=== PATIENT | female | born 1930 | race Caucasian/White ===

== ENCOUNTER 2017-06-09 00:29 | Inpatient (IN) | payer MEDICARE, MEDICAID ==
[2017-06-09] VITALS (10 sets, daily range): BP systolic 130–161; BP diastolic 61–88
[~2017-06-09] VITALS: Ht 157.5 cm; Wt 47.6 kg
[2017-06-09] MEDS ORDERED: Sodium Chloride 500ML 500 ML IV ONE (00:37)
[2017-06-09] MEDS ORDERED: TENORMIN50 MG ORAL (00:42)
[2017-06-09] MEDS ORDERED: MIRTAZAPINE15 MG ORAL (00:42)
[2017-06-09] MEDS ORDERED: DIOVAN160 MG ORAL (00:42)
[2017-06-09] MEDS ORDERED: METFORMIN HCL500 M1 ORAL (00:42)
[2017-06-09 01:13] LABS: BASOPHILS % (AUTO) 1.2 % (0.0-2.0); HEMATOCRIT 39.1 % (37.0-47.0); HEMOGLOBIN 13.2 G/DL (12.0-16.0); LYMPHOCYTES % (AUTO) 43.4 % (20.0-45.0); MEAN CORPUSCULAR VOLUME 92 FL (80-99); MONOCYTES % (AUTO) 9.9 % (1.0-10.0); NEUTROPHILS % (AUTO) 42.5 % (45.0-75.0); PLATELET COUNT 334 K/UL (150-450); RED BLOOD COUNT 4.26 M/UL (4.20-5.40); RED CELL DISTRIBUTION WIDTH 12.3 % (11.6-14.8); WHITE BLOOD COUNT 5.9 K/UL (4.8-10.8)
[2017-06-09 01:13] LABS: APPEARANCE,URINE CLEAR; BILIRUBIN, URINE NEGATIVE (NEGATIVE); COLOR,URINE PALE YELLOW; GLUCOSE, URINE (UA) NEGATIVE (NEGATIVE); KETONES,URINE NEGATIVE (NEGATIVE); LEUKOCYTE ESTERASE ,URINE 1+ (NEGATIVE); NITRITE,URINE NEGATIVE (NEGATIVE); PH,URINE 8 (4.5-8.0); PROTEIN,URINE NEGATIVE (NEGATIVE); UROBILINOGEN,URINE NORMAL MG/DL (0.0-1.0)
[2017-06-09 01:28] LABS: ANION GAP 9 mmol/L (5-15); BLOOD UREA NITROGEN 16 mg/dL (7-18); CALCIUM 10.4 MG/DL (8.5-10.1); CARBON DIOXIDE 27 MMOL/L (21-32); CHLORIDE 103 MMOL/L (98-107); POTASSIUM 3.8 MMOL/L (3.5-5.1); SODIUM 139 MMOL/L (136-145)
[2017-06-09 01:41] LABS: ALANINE AMINOTRANSFERASE 17 U/L (12-78); ALBUMIN 3.7 G/DL (3.4-5.0); ALBUMIN/GLOBULIN RATIO 0.8 (1.0-2.7); ALKALINE PHOSPHATASE 136 U/L (46-116); ASPARTATE AMINO TRANSFERASE 16 U/L (15-37); BILIRUBIN,TOTAL 0.2 MG/DL (0.2-1.0); CKMB < 0.5 NG/ML (0.0-3.6); CREATINE KINASE 50 U/L (26-308)
[2017-06-09] MEDS ORDERED: Metoprolol Tartrate 50mg tab ORAL ONE (01:45)
--- NOTE | 2017-06-09 02:37 | Emergency Room Report ---
History of Present Illness General Chief Complaint: Hypertension Source: EMS Present Illness HPI 87-year-old female presents ED for evaluation. Brought in by EMS. Daughter at bedside states that patient states she is not feeling well. States her heart started racing tonight. EMS states that rhythm strip showed A. fib. Resolved upon arrival to the ED. Denies any chest pain. Denies any fevers or chills. Denies shortness of breath. Daughter states that this happened recently but patient did not seek medical attention. No prior history of A. fib. No other aggravating factors. Denies any other associated symptoms Allergies: Coded Allergies: SULFA (SULFONAMIDE ANTIBIOTICS) (Verified Allergy, Unknown, 06/09/17) Patient History Past Medical History: DM, psych hx Past Surgical History: none Pertinent Family History: none Social History: Denies: smoking, alcohol use, drug use Now: No Immunizations: UTD Reviewed Nursing Documentation: PMH: Agreed, PSxH: Agreed Nursing Documentation-PMH Hx Hypertension: Yes Hx Diabetes: Yes History Of Psychiatric Problem: Yes - anxiety Review of Systems All Other Systems: negative except mentioned in HPI Physical Exam Vital Signs Date Time Temp Pulse Resp B/P (MAP) Pulse Ox O2 Delivery O2 Flow Rate FiO2 06/09/17 00:16 98.3 145 18 178/85 99 Room Air 98.2 Sp02 EP Interpretation: reviewed, normal General Appearance: no apparent distress, alert, GCS 15, non-toxic Head: normocephalic, atraumatic Eyes: bilateral eye normal inspection, bilateral eye PERRL ENT: hearing grossly normal, normal pharynx, no angioedema, normal voice Neck: full range of motion, supple/symm/no masses Respiratory: chest non-tender, lungs clear, normal breath sounds, speaking full sentences Cardiovascular #1: regular rate, rhythm, no edema Cardiovascular #2: 2+ carotid (R), 2+ carotid (L), 2+ radial (R), 2+ radial (L) , 2+ dorsalis pedis (R), 2+ dorsalis pedis (L) Gastrointestinal: normal bowel sounds, non tender, soft, non-distended, no guarding, no rebound Rectal: deferred Genitourinary: normal inspection, no CVA tenderness Musculoskeletal: back normal, gait/station normal, normal range of motion, non- tender Neurologic: alert, oriented x3, responsive, motor strength/tone normal, sensory intact, speech normal Psychiatric: judgement/insight normal, memory normal, mood/affect normal, no suicidal/homicidal ideation Reflexes: 3+ bicep (R), 3+ bicep (L), 3+ tricep (R), 3+ tricep (L), 3+ knee (R) , 3+ knee (L) Skin: normal color, no rash, warm/dry, well hydrated Lymphatic: no adenopathy Medical Decision Making Diagnostic Impression: Primary Impression: Atrial fibrillation Qualified Codes: I48.0 - Paroxysmal atrial fibrillation ER Course Hospital Course 87 yo F presents to ED c/o palpitations, weakness Differential diagnoses include: PA/unstable angina, contusion, muscle strain, PTX, rib fracture, pneumonia, Clinical course Patient placed on stretcher. on case monitor which shows episodes of A. fib with RVR. After initial history and physical I ordered labs, EKG, chest x-ray labs reviewed- no leukocytosis, hemoglobin/hematocrit ok, electrolytes okay, troponins negative EKG - afib, no acute ischemic changes interpreted by me Chest x-ray- no acute process give lopressor in ED Case discussed with Dr. Awan and he agreed to accept the patient to his service for further care and support I. I feel this is a highly complex case requiring extensive working including EKG/Rhythm strip, Xray/CT/US, Blood/urine lab work, repeat exams while in ED, and administration of strong opiates/narcotics for pain control, admission to hospital or close patient follow up. Diagnosis - atrial fibrillation admitted to telemetry in serious condition Labs Test 06/09/17 00:40 06/09/17 00:45 Urine Color Pale yellow Urine Appearance Clear Urine pH 8 (4.5-8.0) Urine Specific [place] 1.010 (1.005-1.035) Urine Protein Negative (NEGATIVE) Urine Glucose (UA) Negative (NEGATIVE) Urine Ketones Negative (NEGATIVE) Urine Occult Blood Negative (NEGATIVE) Urine Nitrite Negative (NEGATIVE) Urine Bilirubin Negative (NEGATIVE) Urine Urobilinogen Normal MG/DL (0.0-1.0) Urine Leukocyte Esterase 1+ (NEGATIVE) Urine RBC 0-2 /HPF (0 - 2) Urine WBC 0-2 /HPF (0 - 2) Urine Squamous Epithelial Cells Occasional /LPF Urine Bacteria Occasional /HPF (NONE) White Blood Count 5.9 K/UL (4.8-10.8) Red Blood Count 4.26 M/UL (4.20-5.40) Hemoglobin 13.2 G/DL (12.0-16.0) Hematocrit 39.1 % (37.0-47.0) Mean Corpuscular Volume 92 FL (80-99) Mean Corpuscular Hemoglobin 31.0 PG (27.0-31.0) Mean Corpuscular Hemoglobin Concent 33.8 G/DL (32.0-36.0) Red Cell Distribution Width 12.3 % (11.6-14.8) Platelet Count 334 K/UL (150-450) Mean Platelet Volume 7.5 FL (6.5-10.1) Neutrophils (%) (Auto) 42.5 % (45.0-75.0) Lymphocytes (%) (Auto) 43.4 % (20.0-45.0) Monocytes (%) (Auto) 9.9 % (1.0-10.0) Eosinophils (%) (Auto) 3.0 % (0.0-3.0) Basophils (%) (Auto) 1.2 % (0.0-2.0) Sodium Level 139 MMOL/L (136-145) Potassium Level 3.8 MMOL/L (3.5-5.1) Chloride Level 103 MMOL/L (98-107) Carbon Dioxide Level 27 MMOL/L (21-32) Anion Gap 9 mmol/L (5-15) Blood Urea Nitrogen 16 mg/dL (7-18) Creatinine 1.0 MG/DL (0.55-1.30) Estimat Glomerular Filtration Rate mL/min (>60) Glucose Level 128 MG/DL (74-106) Calcium Level 10.4 MG/DL (8.5-10.1) Total Bilirubin 0.2 MG/DL (0.2-1.0) Aspartate Amino Transf (AST/SGOT) 16 U/L (15-37) Alanine Aminotransferase (ALT/SGPT) 17 U/L (12-78) Alkaline Phosphatase 136 U/L (46-116) Total Creatine Kinase 50 U/L (26-308) Creatine Kinase MB < 0.5 NG/ML (0.0-3.6) Creatine Kinase MB Relative Index 1.0 Troponin I 0.000 ng/mL (0.000-0.056) Pro-B-Type Natriuretic Peptide 422 pg/mL (0-125) Total Protein 8.3 G/DL (6.4-8.2) Albumin 3.7 G/DL (3.4-5.0) Globulin 4.6 g/dL Albumin/Globulin Ratio 0.8 (1.0-2.7) EKG Diagnostic Results Rate: normal Rhythm: other - atral fibrillation ST Segments: no acute changes ASA given to the pt in ED: No Rhythm Strip Diag. Results EP Interpretation: yes Rhythm: no PVC's, no ectopy Chest X-Ray Diagnostic Results Chest X-Ray Diagnostic Results : Chest X-Ray Ordered: Yes # of Views/Limited/Complete: 1 View Indication: Chest Pain EP Interpretation: Yes Interpretation: no consolidation, no effusion, no pneumothorax, no acute cardiopulmonary disease Impression: No acute disease Electronically Signed by: Electronically signed by Jong Sheehan MD Last Vital Signs Date Time Temp Pulse Resp B/P (MAP) Pulse Ox O2 Delivery O2 Flow Rate FiO2 06/09/17 01:59 118 148/78 06/09/17 01:40 98.6 18 100 Room Air 98.6 Status: improved Disposition: ADMITTED INPATIENT Condition: Serious Referrals: NON PHYSICIAN (PCP) JONG SHEEHAN M.D. Jun 09, 2017 02:37
--- NOTE | 2017-06-09 07:48 | History & Physical ---
History and Physical History & Physicial Seen and examined. Full Dic completed Yadira Awan MD Jun 09, 2017 07:48
--- NOTE | 2017-06-09 07:51 | General Progress Note ---
Assessment/Plan Status: stable Assessment/Plan 1- New Afib 2- HTN 3- Psych Plan: Started ATC Cardiology- Dr Fabian Subjective ROS Limited/Unobtainable: No Constitutional: Reports: no symptoms HEENT: Reports: no symptoms Cardiovascular: Reports: irregular heart rate Respiratory: Reports: no symptoms Allergies: Coded Allergies: SULFA (SULFONAMIDE ANTIBIOTICS) (Verified Allergy, Unknown, 06/09/17) Objective Last 24 Hour Vital Signs Date Time Temp Pulse Resp B/P (MAP) Pulse Ox O2 Delivery O2 Flow Rate FiO2 06/09/17 04:10 96.4 67 19 145/66 98 Room Air 96.4 06/09/17 04:00 61 06/09/17 04:00 98.2 71 19 142/81 99 Room Air 98.2 06/09/17 03:40 98.2 71 19 142/81 99 Room Air 98.2 06/09/17 02:40 98.4 78 21 141/70 98 Room Air 98.4 06/09/17 01:59 118 148/78 06/09/17 01:40 98.6 118 18 148/78 100 Room Air 98.6 06/09/17 00:40 88 18 Room Air 06/09/17 00:40 98.2 88 18 156/88 100 Room Air 98.2 06/09/17 00:16 98.3 145 18 178/85 99 Room Air 98.2 Intake and Output 06/08/17 06/09/17 19:00 07:00 Intake Total 500 ml Output Total 300 ml Balance 200 ml Intake IV Total 500 ml Output Urine Total 300 ml # Voids 1 Laboratory Tests 06/09/17 00:40: Urine Color Pale yellow, Urine Appearance Clear, Urine pH 8, Urine Specific [place] 1.010, Urine Protein Negative, Urine Glucose (UA) Negative, Urine Ketones Negative, Urine Occult Blood Negative, Urine Nitrite Negative, Urine Bilirubin Negative, Urine Urobilinogen Normal, Urine Leukocyte Esterase 1+H, Urine RBC 0-2, Urine WBC 0-2, Urine Squamous Epithelial Cells Occasional, Urine Bacteria Occasional 06/09/17 00:45: White Blood Count 5.9, Red Blood Count 4.26, Hemoglobin 13.2, Hematocrit 39.1, Mean Corpuscular Volume 92, Mean Corpuscular Hemoglobin 31.0, Mean Corpuscular Hemoglobin Concent 33.8, Red Cell Distribution Width 12.3, Platelet Count 334, Mean Platelet Volume 7.5, Neutrophils (%) (Auto) 42.5L, Lymphocytes (%) (Auto) 43.4, Monocytes (%) (Auto) 9.9, Eosinophils (%) (Auto) 3.0, Basophils (%) (Auto ) 1.2, Sodium Level 139, Potassium Level 3.8, Chloride Level 103, Carbon Dioxide Level 27, Anion Gap 9, Blood Urea Nitrogen 16, Creatinine 1.0, Estimat Glomerular Filtration Rate , Glucose Level 128H, Calcium Level 10.4H, Total Bilirubin 0.2, Aspartate Amino Transf (AST/SGOT) 16, Alanine Aminotransferase ( ALT/SGPT) 17, Alkaline Phosphatase 136H, Total Creatine Kinase 50, Creatine Kinase MB < 0.5, Creatine Kinase MB Relative Index 1.0, Troponin I 0.000, Pro-B- Type Natriuretic Peptide 422H, Total Protein 8.3H, Albumin 3.7, Globulin 4.6, Albumin/Globulin Ratio 0.8L Height (Feet): 5 Height (Inches): 2.00 Weight (Pounds): 105 General Appearance: WD/WN EENT: PERRL/EOMI Neck: supple Cardiovascular: irregularly irregular Respiratory/Chest: lungs clear Abdomen: soft Extremities: non-tender Neurologic: vascular ultrasound technician II-XII grossly normal Yadira Awan MD Jun 09, 2017 07:51
--- NOTE | 2017-06-09 08:49 | Diagnostic Imaging Report ---
Indication: Chest pain Technique: XRAY Chest 1v Comparison: None Findings: Cardiac silhouette is prominent. Atherosclerotic changes are present. There is no consolidation or pleural effusion. Mild generalized interstitial prominence is noted. Degenerative changes of the spine are seen. There is osteopenia. Impression: Cardiomegaly. Mild generalized interstitial prominence and mild edema cannot be excluded. Clinical correlation/follow-up recommended.
[2017-06-09] MEDS ORDERED: Enoxaparin Sodium 300mg/3ml vial SUBQ SCH (09:00)
[2017-06-09] MEDS: Aspirin Baby 81mg ORAL SCH (09:00)
[2017-06-09] MEDS ORDERED: Irbesartan 150mg tablet ORAL SCH (10:30)
[2017-06-09] MEDS: VALSARTAN 160 MG ORAL SCH ×2 (11:00→17:23)
--- NOTE | 2017-06-09 15:15 | History and Physical Report ---
DATE OF ADMISSION: 06/09/2017 SOURCE OF INFORMATION: The patient and EMR. HISTORY OF PRESENT ILLNESS: The patient is a pleasant 87-year-old female, who presented with the episode of palpitation for one month. Denies any loss of consciousness. Denies any chest pain. Denies any shortness of breath. The patient lives with her daughter. Denies any abnormal bleeding. Denies any headache or dizziness. REVIEW OF SYSTEMS: All 12 elements of review of systems reviewed. Pertinent positive and negative as above. PAST SURGICAL HISTORY: Denies. ALLERGIES: To sulfa. MEDICATIONS: Current hospital medications including but not limited to, Lovenox 50 mg subcutaneous b.i.d., atenolol 50 mg p.o. b.i.d., and aspirin 81 mg daily. FAMILY HISTORY: Reviewed and noncontributory. SOCIAL HISTORY: The patient denies history of illicit drug abuse, smoking or alcohol abuse. The patient lives with her daughter. PHYSICAL EXAMINATION: VITAL SIGNS: Blood pressure 150/80, temperature 98.2, pulse rate 110, and pulse oximetry 100% on room air. HEAD AND NECK: Atraumatic and normocephalic. CHEST: Clear to auscultation. No wheezing. No crackles. ABDOMEN: Soft. No organomegaly. HEART: S1 and S2. Irregularly irregular. MUSCULOSKELETAL: No gross focal motor deficit. NEUROLOGY: The patient is awake, alert and oriented x3. Chest x-ray, pending. ASSESSMENT AND PLAN: 1. Atrial fibrillation - new onset - uncontrolled rate. 2. Diabetes type 2, status unknown. 3. Psychiatric disorder. 4. Gastrointestinal and DVT prophylaxis. PLAN OF CARE: Given the high CHADS2 score, I will take the liberty and initiate the patient on anticoagulation. Cardiology, Dr. Fabian consulted. Continue with antiplatelets. Will switch to NOAC, at cardiology discretion Yadira Awan M.D. DR: LILIANA JOB#: [id number] CC: RENETTA
--- NOTE | 2017-06-09 18:39 | Cardiology Progress Note ---
Assessment/Plan Assessment/Plan The patient is seen and examined, full consult note will be dictated shortly. Objective Last 24 Hour Vital Signs Date Time Temp Pulse Resp B/P (MAP) Pulse Ox O2 Delivery O2 Flow Rate FiO2 06/09/17 17:23 66 144/74 06/09/17 16:00 71 06/09/17 16:00 97.0 64 18 144/74 97 Room Air 97.0 06/09/17 12:00 97.0 64 18 130/66 97 Room Air 97.0 06/09/17 12:00 63 06/09/17 10:09 77 148/71 06/09/17 08:00 97.2 77 18 148/71 99 Room Air 97.2 06/09/17 08:00 59 06/09/17 04:10 96.4 67 19 145/66 98 Room Air 96.4 06/09/17 04:00 61 06/09/17 04:00 98.2 71 19 142/81 99 Room Air 98.2 06/09/17 03:40 98.2 71 19 142/81 99 Room Air 98.2 06/09/17 02:40 98.4 78 21 141/70 98 Room Air 98.4 06/09/17 01:59 118 148/78 06/09/17 01:40 98.6 118 18 148/78 100 Room Air 98.6 06/09/17 00:40 88 18 Room Air 06/09/17 00:40 98.2 88 18 156/88 100 Room Air 98.2 06/09/17 00:16 98.3 145 18 178/85 99 Room Air 98.2 Intake and Output 06/08/17 06/09/17 19:00 07:00 Intake Total 500 ml Output Total 300 ml Balance 200 ml IV Total 500 ml Output Urine Total 300 ml # Voids 1 Laboratory Tests Test 06/09/17 00:40 06/09/17 00:45 06/09/17 07:45 06/09/17 16:00 Urine Color Pale yellow Urine Appearance Clear Urine pH 8 (4.5-8.0) Urine Specific [place] 1.010 (1.005-1.035) Urine Protein Negative (NEGATIVE) Urine Glucose (UA) Negative (NEGATIVE) Urine Ketones Negative (NEGATIVE) Urine Occult Blood Negative (NEGATIVE) Urine Nitrite Negative (NEGATIVE) Urine Bilirubin Negative (NEGATIVE) Urine Urobilinogen Normal MG/DL (0.0-1.0) Urine Leukocyte Esterase 1+ (NEGATIVE) H Urine RBC 0-2 /HPF (0 - 2) Urine WBC 0-2 /HPF (0 - 2) Urine Squamous Epithelial Cells Occasional /LPF Urine Bacteria Occasional /HPF (NONE) White Blood Count 5.9 K/UL (4.8-10.8) Red Blood Count 4.26 M/UL (4.20-5.40) Hemoglobin 13.2 G/DL (12.0-16.0) Hematocrit 39.1 % (37.0-47.0) Mean Corpuscular Volume 92 FL (80-99) Mean Corpuscular Hemoglobin 31.0 PG (27.0-31.0) Mean Corpuscular Hemoglobin Concent 33.8 G/DL (32.0-36.0) Red Cell Distribution Width 12.3 % (11.6-14.8) Platelet Count 334 K/UL (150-450) Mean Platelet Volume 7.5 FL (6.5-10.1) Neutrophils (%) (Auto) 42.5 % (45.0-75.0) L Lymphocytes (%) (Auto) 43.4 % (20.0-45.0) Monocytes (%) (Auto) 9.9 % (1.0-10.0) Eosinophils (%) (Auto) 3.0 % (0.0-3.0) Basophils (%) (Auto) 1.2 % (0.0-2.0) Sodium Level 139 MMOL/L (136-145) Potassium Level 3.8 MMOL/L (3.5-5.1) Chloride Level 103 MMOL/L (98-107) Carbon Dioxide Level 27 MMOL/L (21-32) Anion Gap 9 mmol/L (5-15) Blood Urea Nitrogen 16 mg/dL (7-18) Creatinine 1.0 MG/DL (0.55-1.30) Estimat Glomerular Filtration Rate mL/min (>60) Glucose Level 128 MG/DL (74-106) H Calcium Level 10.4 MG/DL (8.5-10.1) H Total Bilirubin 0.2 MG/DL (0.2-1.0) Aspartate Amino Transf (AST/SGOT) 16 U/L (15-37) Alanine Aminotransferase (ALT/SGPT) 17 U/L (12-78) Alkaline Phosphatase 136 U/L (46-116) H Total Creatine Kinase 50 U/L (26-308) Creatine Kinase MB < 0.5 NG/ML (0.0-3.6) Creatine Kinase MB Relative Index 1.0 Troponin I 0.000 ng/mL (0.000-0.056) 0.000 ng/mL (0.000-0.056) 0.000 ng/mL (0.000-0.056) Pro-B-Type Natriuretic Peptide 422 pg/mL (0-125) H Total Protein 8.3 G/DL (6.4-8.2) H Albumin 3.7 G/DL (3.4-5.0) Globulin 4.6 g/dL Albumin/Globulin Ratio 0.8 (1.0-2.7) BALBIR MITCHELL Jun 09, 2017 18:39
--- NOTE | 2017-06-09 23:45 | Consultation ---
DATE OF CONSULTATION: 06/09/2017 CARDIOLOGY CONSULTATION CONSULTING PHYSICIAN: Paco Fabian M.D. REFERRING PHYSICIAN: Yadira Awan M.D. REASON FOR CONSULTATION: Management of atrial fibrillation. HISTORY OF PRESENT ILLNESS: The patient is a very unfortunate 87-year-old lady who presents to the hospital with a complaints of not feeling well. According to the patient's daughter who was at the bedside and helping with interpretation. The patient's heart rate started racing last night. Upon arrival of EMS and obtaining the rhythm strip, atrial fibrillation was diagnosed. Upon arrival to the emergency department, the patient did not have any chest pain or shortness of breath. Heart rate was 145 and blood pressure was 178/85 mm Hg. A 12-lead electrocardiogram in the emergency department was significant for multifocal atrial rhythm a rate of [address] and T-wave abnormalities. According to the patient's daughter, the patient has had history of hypertension for long time and had been noncompliant with blood pressure medication. Her healthcare has been affected by her change of health care plans. It appears that every time she goes to a clinic, she is seen by a different provider and the daughter is not happy with this situation. PAST MEDICAL HISTORY: Diabetes mellitus, hypertension, and psychiatric history/anxiety disorder. PAST SURGICAL HISTORY: None. MEDICATIONS: List of medications including atenolol 50 mg twice daily, metformin 500 mg twice daily, Remeron 15 mg p.o. at bedtime, and Diovan 160 mg p.o. twice daily. ALLERGIES: Sulfa. SOCIAL HISTORY: Denies any tobacco, alcohol, or illicit drug use. FAMILY HISTORY: No premature coronary artery disease in first-degree relatives. REVIEW OF SYSTEMS: HEENT: Denies any headache, diplopia, or blurred vision. CONSTITUTIONAL: Denies any fever, chills, night sweats, or weight loss. CARDIOVASCULAR: Denies any chest pain. She had palpitation. She did not have any shortness of breath. She did not have any PND, orthopnea, or leg swelling. She did not have any syncope. PULMONARY: Denies any cough, hemoptysis, or wheezing. GASTROINTESTINAL: Denies any nausea, vomiting, diarrhea, constipation, abdominal pain, or GI bleed. GENITOURINARY: Denies any hematuria, dysuria, or incontinence. NEUROLOGY: Denies any motor dysfunction, sensory deficit, or altered speech. No prior history of stroke. MUSCULOSKELETAL: She did not have any myalgia or did not have any muscle pain or joint pain. PHYSICAL EXAMINATION: GENERAL: The patient is a very pleasant 87-year-old lady in no apparent respiratory distress. Alert and oriented x4. VITAL SIGNS: Blood pressure was 178/85, respirations of 18, pulse of 145, temperature 98.3 degrees Fahrenheit, and O2 saturation 99% on room air. HEENT: Atraumatic and normocephalic. ENT, pupils are equal, round, and reactive to light and accommodation. Extraocular muscles intact. NECK: JVP less than 5 centimeter. No carotid bruit. Carotid upstrokes 2+ bilaterally. CARDIOVASCULAR: Normal S1 and S2. Regular rate and rhythm. No murmurs, gallops, or rubs. PMI is at fourth intercostal space in the midclavicular line. LUNGS: Clear to auscultation bilaterally. ABDOMEN: Soft, nontender, and nondistended. No hepatosplenomegaly. Positive bowel sounds. EXTREMITIES: No evidence of edema, clubbing, or cyanosis. LABORATORY AND DIAGNOSTIC DATA: Sodium was 139, potassium 3.8, chloride 103, bicarbonate 27, BUN of 16, creatinine 1.0 and glucose 128. Calcium is 10.4. Troponin I 0.0 x3. ProBNP was 422. WBC is 5.9, hemoglobin 13.2, hematocrit 39.1 and platelet count 334. A 12-lead electrocardiogram was significant for multifocal rhythm at a rate of [address] and T-wave abnormalities. There was LVH with repolarization abnormality. Cannot rule out septal infarct versus LVH. Multifocal atrial rhythm at a rate of 87 with LVH with repolarization abnormalities. No criteria for an ST-elevation myocardial infarction or there is no active ischemic features. ASSESSMENT AND PLAN: The patient is a very unfortunate 87-year-old lady seen in Cardiology consultation at the request of Dr. Awan. 1. Paroxysmal atrial fibrillation, currently in sinus rhythm. The patient will be continued on atenolol. I have spoke with the patient regarding placement of oral anticoagulant agents in lieu of Lovenox, the patient and the patient's daughter are both in agreement. A 2D echocardiography has ruled out valvular heart disease. 2. Multifocal atrial rhythm and other rhythm that is evident on the 12-lead electrocardiogram. A 2D echocardiography essentially shows hypertensive heart disease, LVEF over 60%-65%. 3. History of diabetes mellitus. The patient will benefit from statins given the fact that the patient will be placed on , aspirin would be withheld at this point. I would like to thank, Dr. Awan, for the courtesy of this consultation. Paco Fabian M.D. DR: ADAM JOB#: [id number] CC:
[2017-06-10 00:15] VITALS: BP 155/68
[2017-06-10 04:00] VITALS: BP 144/74
[2017-06-10 08:00] VITALS: BP 157/67
[2017-06-10] MEDS: Aspirin Baby 81mg ORAL SCH (08:44)
[2017-06-10] MEDS: Eliquis 2.5mg tablet ORAL SCH ×2 (08:45→17:06)
[2017-06-10] MEDS: VALSARTAN 160 MG ORAL SCH ×2 (08:45→17:07)
[2017-06-10 10:12] LABS: HEMATOCRIT 35.4 % (37.0-47.0); HEMOGLOBIN 11.8 G/DL (12.0-16.0); MEAN CORPUSCULAR VOLUME 93 FL (80-99); PLATELET COUNT 312 K/UL (150-450); WHITE BLOOD COUNT 4.8 K/UL (4.8-10.8)
[2017-06-10 10:18] LABS: ALANINE AMINOTRANSFERASE 18 U/L (12-78); ALBUMIN 3.2 G/DL (3.4-5.0); ALBUMIN/GLOBULIN RATIO 0.8 (1.0-2.7); ALKALINE PHOSPHATASE 101 U/L (46-116); ANION GAP 7 mmol/L (5-15); ASPARTATE AMINO TRANSFERASE 22 U/L (15-37); BILIRUBIN,TOTAL 0.5 MG/DL (0.2-1.0); BLOOD UREA NITROGEN 13 mg/dL (7-18); CALCIUM 9.9 MG/DL (8.5-10.1); CARBON DIOXIDE 26 MMOL/L (21-32); CHLORIDE 107 MMOL/L (98-107); POTASSIUM 3.7 MMOL/L (3.5-5.1); SODIUM 140 MMOL/L (136-145)
--- NOTE | 2017-06-10 11:42 | General Progress Note ---
Assessment/Plan Status: stable Assessment/Plan 1. paroxysmal Atrial fibrillation 2. Diabetes type 2, status unknown. 3. Psychiatric disorder. 4. Gastrointestinal and DVT prophylaxis. 5. Ovarian cyst: planned for elective resection Plan: DC pending to completion of Cardiology- Dr Fabian workup Subjective ROS Limited/Unobtainable: No Constitutional: Reports: no symptoms HEENT: Reports: no symptoms Cardiovascular: Reports: no symptoms Allergies: Coded Allergies: SULFA (SULFONAMIDE ANTIBIOTICS) (Verified Allergy, Unknown, 06/09/17) Objective Last 24 Hour Vital Signs Date Time Temp Pulse Resp B/P (MAP) Pulse Ox O2 Delivery O2 Flow Rate FiO2 06/10/17 08:45 61 157/67 06/10/17 08:00 97.0 61 18 157/67 97 97.0 06/10/17 04:00 59 06/10/17 04:00 97.0 59 16 144/74 98 97.0 06/10/17 00:15 97.0 61 16 155/68 98 97.0 06/10/17 00:00 60 06/09/17 23:59 97.0 60 16 161/68 98 97.0 06/09/17 20:00 61 06/09/17 19:58 97.9 61 16 144/61 95 97.9 06/09/17 17:23 66 144/74 06/09/17 16:00 71 06/09/17 16:00 97.0 64 18 144/74 97 Room Air 97.0 06/09/17 12:00 97.0 64 18 130/66 97 Room Air 97.0 06/09/17 12:00 63 Intake and Output 06/09/17 06/10/17 19:00 07:00 Intake Total 360 ml 240 ml Balance 360 ml 240 ml Intake Oral 360 ml 240 ml # Voids 2 2 Laboratory Tests 06/09/17 16:00: Troponin I 0.000 06/10/17 00:30: Troponin I 0.000 06/10/17 08:00: Troponin I 0.000, White Blood Count 4.8, Red Blood Count 3.80L, Hemoglobin 11.8L , Hematocrit 35.4L, Mean Corpuscular Volume 93, Mean Corpuscular Hemoglobin 31.0 , Mean Corpuscular Hemoglobin Concent 33.3, Red Cell Distribution Width 12.0, Platelet Count 312, Mean Platelet Volume 7.2, Neutrophils (%) (Auto) , Lymphocytes (%) (Auto) , Monocytes (%) (Auto) , Eosinophils (%) (Auto) , Basophils (%) (Auto) , Neutrophils % (Manual) [Pending], Lymphocytes % (Manual) [Pending], Platelet Estimate [Pending], Platelet Morphology [Pending], Sodium Level 140, Potassium Level 3.7, Chloride Level 107, Carbon Dioxide Level 26, Anion Gap 7, Blood Urea Nitrogen 13, Creatinine 1.0, Estimat Glomerular Filtration Rate , Glucose Level 157H, Calcium Level 9.9, Total Bilirubin 0.5, Aspartate Amino Transf (AST/SGOT) 22, Alanine Aminotransferase (ALT/SGPT) 18, Alkaline Phosphatase 101, Total Protein 7.3, Albumin 3.2L, Globulin 4.1, Albumin /Globulin Ratio 0.8L Height (Feet): 5 Height (Inches): 2.00 Weight (Pounds): 105 General Appearance: WD/WN EENT: PERRL/EOMI Neck: supple Cardiovascular: normal rate Respiratory/Chest: lungs clear Abdomen: soft Extremities: non-tender Neurologic: lining setter II-XII grossly normal Yadira Awan MD Jun 10, 2017 11:41
[2017-06-10] MEDS ORDERED: Bisacodyl EC 5mg tab ORAL PRN (11:45)
[2017-06-10 12:00] VITALS: BP 153/66
[2017-06-10] MEDS: Docusate 100mg cap ORAL SCH ×2 (12:14→17:06)
[2017-06-10 16:00] VITALS: BP 152/70
--- NOTE | 2017-06-10 16:28 | Cardiology Report ---
APPROVED REPORT EKG Measurement Heart [id number] Sinus rhythm with marked sinus arrhythmia Left ventricular hypertrophy with repolarization abnormality Cannot rule out Septal infarct, age undetermined Abnormal ECG
[2017-06-10 20:00] VITALS: BP 152/63
--- NOTE | 2017-06-10 23:31 | Cardiology Progress Note ---
Assessment/Plan Assessment/Plan 1. Paroxysmal atrial fibrillation, currently in sinus rhythm. Continue Eliquis and atenolol. 2. Multifocal atrial rhythm A 2D echocardiography essentially shows hypertensive heart disease, LVEF over 60%-65%. 3. History of diabetes mellitus. Subjective Subjective Atrial fib at 63. Objective Last 24 Hour Vital Signs Date Time Temp Pulse Resp B/P (MAP) Pulse Ox O2 Delivery O2 Flow Rate FiO2 06/10/17 20:00 97.0 63 21 152/63 98 97.0 06/10/17 20:00 63 06/10/17 17:07 63 152/70 06/10/17 16:00 97.0 63 18 152/70 99 97.0 06/10/17 16:00 64 06/10/17 12:00 81 06/10/17 12:00 97.3 62 18 153/66 97 97.3 06/10/17 08:45 61 157/67 06/10/17 08:00 64 06/10/17 08:00 97.0 61 18 157/67 97 97.0 06/10/17 04:00 59 06/10/17 04:00 97.0 59 16 144/74 98 97.0 06/10/17 00:15 97.0 61 16 155/68 98 97.0 06/10/17 00:00 60 06/09/17 23:59 97.0 60 16 161/68 98 97.0 Intake and Output 06/09/17 06/10/17 19:00 07:00 Intake Total 360 ml 240 ml Balance 360 ml 240 ml Intake Oral 360 ml 240 ml # Voids 2 2 Laboratory Tests Test 06/10/17 00:30 06/10/17 08:00 06/10/17 16:00 Troponin I 0.000 ng/mL (0.000-0.056) 0.000 ng/mL (0.000-0.056) 0.000 ng/mL (0.000-0.056) White Blood Count 4.8 K/UL (4.8-10.8) Red Blood Count 3.80 M/UL (4.20-5.40) L Hemoglobin 11.8 G/DL (12.0-16.0) L Hematocrit 35.4 % (37.0-47.0) L Mean Corpuscular Volume 93 FL (80-99) Mean Corpuscular Hemoglobin 31.0 PG (27.0-31.0) Mean Corpuscular Hemoglobin Concent 33.3 G/DL (32.0-36.0) Red Cell Distribution Width 12.0 % (11.6-14.8) Platelet Count 312 K/UL (150-450) Mean Platelet Volume 7.2 FL (6.5-10.1) Neutrophils (%) (Auto) % (45.0-75.0) Lymphocytes (%) (Auto) % (20.0-45.0) Monocytes (%) (Auto) % (1.0-10.0) Eosinophils (%) (Auto) % (0.0-3.0) Basophils (%) (Auto) % (0.0-2.0) Differential Total Cells Counted 100 Neutrophils % (Manual) 26 % (45-75) L Lymphocytes % (Manual) 62 % (20-45) H Monocytes % (Manual) 5 % (1-10) Eosinophils % (Manual) 5 % (0-3) H Basophils % (Manual) 2 % (0-2) Band Neutrophils 0 % (0-8) Platelet Estimate Adequate Platelet Morphology Normal Red Blood Cell Morphology Normal Sodium Level 140 MMOL/L (136-145) Potassium Level 3.7 MMOL/L (3.5-5.1) Chloride Level 107 MMOL/L (98-107) Carbon Dioxide Level 26 MMOL/L (21-32) Anion Gap 7 mmol/L (5-15) Blood Urea Nitrogen 13 mg/dL (7-18) Creatinine 1.0 MG/DL (0.55-1.30) Estimat Glomerular Filtration Rate mL/min (>60) Glucose Level 157 MG/DL (74-106) H Calcium Level 9.9 MG/DL (8.5-10.1) Total Bilirubin 0.5 MG/DL (0.2-1.0) Aspartate Amino Transf (AST/SGOT) 22 U/L (15-37) Alanine Aminotransferase (ALT/SGPT) 18 U/L (12-78) Alkaline Phosphatase 101 U/L (46-116) Total Protein 7.3 G/DL (6.4-8.2) Albumin 3.2 G/DL (3.4-5.0) L Globulin 4.1 g/dL Albumin/Globulin Ratio 0.8 (1.0-2.7) L Objective HEENT: Atraumatic and normocephalic. ENT, pupils are equal, round, and reactive to light and accommodation. Extraocular muscles intact. NECK: JVP less than 5 centimeter. No carotid bruit. Carotid upstrokes 2+ bilaterally. CARDIOVASCULAR: Normal S1 and S2. Regular rate and rhythm. No murmurs, gallops, or rubs. PMI is at fourth intercostal space in the midclavicular line. LUNGS: Clear to auscultation bilaterally. ABDOMEN: Soft, nontender, and nondistended. No hepatosplenomegaly. Positive bowel sounds. EXTREMITIES: No evidence of edema, clubbing, or cyanosis. BALBIR MARQUEZ Jun 10, 2017 23:31
[2017-06-11] VITALS: BP 126/80
[2017-06-11 04:00] VITALS: BP 129/68
[2017-06-11 08:00] VITALS: BP 131/67
[2017-06-11 09:24] VITALS: BP 131/67
[2017-06-11] MEDS: Docusate 100mg cap ORAL SCH (09:24)
[2017-06-11] MEDS: Aspirin Baby 81mg ORAL SCH (09:24)
[2017-06-11] MEDS: VALSARTAN 160 MG ORAL SCH (09:24)
[2017-06-11] MEDS: Eliquis 2.5mg tablet ORAL SCH (09:24)
--- NOTE | 2017-06-11 09:50 | Cardiology Report ---
APPROVED REPORT EXAM: Two-dimensional and M-mode echocardiogram with Doppler and color Doppler. INDICATION A FIBRILLATION M-Mode DIMENSIONS IVSd1.3 (0.7-1.1cm)Left Atrium (MM)3.3 (1.6-4.0cm) LVDd3.3 (3.5-5.6cm)Aortic Root2.6 (2.0-3.7cm) PWd1.2 (0.7-1.1cm)Aortic Cusp Exc.1.4 (1.5-2.0cm) IVSs1.7 cm LVDs2.2 (2.5-4.0cm) PWs1.4 cm Normal left ventricular chamber size, systolic function and wall motion . Left ventricular ejection fraction estimated to be 60-65 %. Trace posterior pericardial effusion. Mild left ventricular hypertrophy by 2-D . All other cardiac chamber sizes are within normal limits. . Normal pulmonic valve structure. Normal tricuspid valve structure. IVC at normal size with physiologic collapse. A color flow and spectral Doppler study was performed and revealed: No aortic insufficiency . Mild mitral regurgitation. Normal left ventricular diastolic function . Mild tricuspid regurgitation. Tricuspid systolic velocities suggests peak right ventricular systolic pressure of22 mmHg. No Pulmonic regurgitation present.
--- NOTE | 2017-06-11 10:19 | General Progress Note ---
Assessment/Plan Status: stable Assessment/Plan 1. paroxysmal Atrial fibrillation 2. Diabetes type 2, status unknown. 3. Psychiatric disorder. 4. Gastrointestinal and DVT prophylaxis. 5. Ovarian cyst: planned for elective resection Plan: DC pending to completion of Cardiology- Dr Fabian workup Ok to DC home with [facility], once clear by Dr Fabian Subjective ROS Limited/Unobtainable: No Constitutional: Reports: no symptoms HEENT: Reports: no symptoms Cardiovascular: Reports: no symptoms Allergies: Coded Allergies: SULFA (SULFONAMIDE ANTIBIOTICS) (Verified Allergy, Unknown, 06/09/17) Objective Last 24 Hour Vital Signs Date Time Temp Pulse Resp B/P (MAP) Pulse Ox O2 Delivery O2 Flow Rate FiO2 06/11/17 09:24 67 131/67 06/11/17 08:00 97.3 67 20 131/67 97 97.3 06/11/17 04:00 61 06/11/17 04:00 97.8 66 20 129/68 99 97.8 06/11/17 00:00 74 06/11/17 00:00 97.1 80 23 126/80 95 97.1 06/10/17 20:00 97.0 63 21 152/63 98 97.0 06/10/17 20:00 63 06/10/17 17:07 63 152/70 06/10/17 16:00 97.0 63 18 152/70 99 97.0 06/10/17 16:00 64 06/10/17 12:00 81 06/10/17 12:00 97.3 62 18 153/66 97 97.3 Intake and Output 06/10/17 06/11/17 19:00 07:00 Intake Total 360 ml Balance 360 ml Intake Oral 360 ml # Voids 2 3 Laboratory Tests 06/10/17 16:00: Troponin I 0.000 Height (Feet): 5 Height (Inches): 2.00 Weight (Pounds): 105 General Appearance: WD/WN EENT: PERRL/EOMI Neck: supple Cardiovascular: normal rate Respiratory/Chest: lungs clear Abdomen: soft Extremities: non-tender, other - deconditioning all extremities Neurologic: wing scorer II-XII grossly normal Yadira Awan MD Jun 11, 2017 10:19
--- NOTE | 2017-06-11 18:12 | Cardiology Progress Note ---
Assessment/Plan Assessment/Plan 1. Paroxysmal atrial fibrillation, currently in sinus rhythm. Continue Eliquis and atenolol. 2. Multifocal atrial rhythm. 3. Hypertensive heart disease with LVEF ~60%-65%. 4. History of diabetes mellitus. Subjective Subjective Atrial fib at 67. Objective Last 24 Hour Vital Signs Date Time Temp Pulse Resp B/P (MAP) Pulse Ox O2 Delivery O2 Flow Rate FiO2 06/11/17 09:24 67 131/67 06/11/17 08:00 97.3 67 20 131/67 97 97.3 06/11/17 08:00 68 06/11/17 04:00 61 06/11/17 04:00 97.8 66 20 129/68 99 97.8 06/11/17 00:00 74 06/11/17 00:00 97.1 80 23 126/80 95 97.1 06/10/17 20:00 97.0 63 21 152/63 98 97.0 06/10/17 20:00 63 Intake and Output 06/10/17 06/11/17 19:00 07:00 Intake Total 360 ml Balance 360 ml Intake Oral 360 ml # Voids 2 3 2D Echo: LVEF 60-65%, Mild LVH, Mild MR, RVSP 22 mmHg Objective HEENT: Atraumatic and normocephalic. ENT, pupils are equal, round, and reactive to light and accommodation. Extraocular muscles intact. NECK: JVP less than 5 centimeter. No carotid bruit. Carotid upstrokes 2+ bilaterally. CARDIOVASCULAR: Normal S1 and S2. Regular rate and rhythm. No murmurs, gallops, or rubs. PMI is at fourth intercostal space in the midclavicular line. LUNGS: Clear to auscultation bilaterally. ABDOMEN: Soft, nontender, and nondistended. No hepatosplenomegaly. Positive bowel sounds. EXTREMITIES: No evidence of edema, clubbing, or cyanosis. BALBIR MARQUEZ Jun 11, 2017 18:12
--- NOTE | 2017-06-14 09:25 | Discharge Summary ---
Discharge Summary Hospital Course Date of Admission Jun 09, 2017 at 01:32 Date of Discharge Jun 11, 2017 at 14:00 Admitting Diagnosis new onset atrial fibrilation HPI Mariza Pride is a 87 year old female who was admitted on Jun 09, 2017 at 01:32 for New Onset Atrial Fibrilation Hospital Course dc summary #[id number] Discharge Condition Upon Discharge: stable Discharge Disposition Patient was discharged to Home with Home Health(06) Discharge Diagnoses: Discharge Instructions Discharge Instructions Special Instructions I have been assigned to complete a D/C Summary on this account. I was not involved in the patient management Olga Keenan NP ([place]) Jun 14, 2017 09:25
--- NOTE | 2017-06-14 15:30 | Discharge Summary 2 SIG ---
DATE OF ADMISSION: 06/09/2017 DATE OF DISCHARGE: 06/11/2017 REASON FOR ADMISSION: 87 years old female with history of hypertension, diabetes type 2, anxiety presented to emergency department for evaluation. The patient was brought by paramedics. The patient reported intermediate heart racing starting last night. EKG done by community mental health worker revealed atrial fibrillation with rapid ventricular response. No prior history of atrial fibrillation. No shortness of breath. No chest pain. Daughter reported that symptoms like these happened before. The patient never seek medical attention. Upon arrival in the emergency department, EKG showed atrial fibrillation with ventricular rate of 145. No acute ischemic changes. Chest x-ray revealed no acute process. Troponin negative. Electrolytes within normal limits. Hemoglobin and hematocrit stable. No leukocytosis. The patient was given Lopressor in the ED and admitted for further management with diagnosis of paroxysmal atrial fibrillation, new onset. HOSPITAL COURSE: The patient admitted. Due to the high risk per CHADS2 score, the patient was started on anticoagulation. Cardiology consult was requested. Serial troponin x4 were negative. The patient spontaneously converted to sinus rhythm. New EKG showed sinus rhythm with a marked sinus arrhythmia and left ventricular hypertrophy. Echocardiogram revealed no evidence of valvular disease, but showed mild left ventricular hypertrophy and evidence of hypertensive heart disease. [employer] Washing Machine Operator closely followed. Serial troponin were negative. EKG showed no acute ischemic changes, but demonstrated multifocal atrial rhythm. The patient was ruled out for acute myocardial infarction. The patient was started on beta-yamileth and anticoagulation with Eliquis. Blood sugar was managed with current regimen and remained stable. Blood pressure was stable. Bowel regimen instituted. Heart rate stabilized. The patient was stable for discharge home with home health services. FINAL DIAGNOSES: 1. Paroxysmal atrial fibrillation, new onset. 2. Hypertensive heart disease. 3. Multifocal atrial rhythm. 4. Diabetes mellitus x2. 5. Psychiatric disorder. DISCHARGE MEDICATIONS: See medication reconciliation list. Prescription provided for new medication. DISCHARGE INSTRUCTIONS: The patient was discharged home with home health services. Follow up with the primary care provider next week. Ydaira Awan M.D. I have been assigned to dictate discharge summary on this account and I was not involved in the patient's management. Olga NajeraPepe champion DR: RAUDEL JOB#: [id number] CC: RENETTA
== END 2017-06-11 14:00 | disposition home health service (06) | DRG 310 ==
LOC: EDBD 00:29 → EMR 01:22 → 2E 01:32 → EDBEDREQ 02:43
DX: I48.0 Paroxysmal atrial fibrillation (principal); I11.9 Hypertensive heart disease without heart failure; E11.9 Type 2 diabetes mellitus without complications; F99 Mental disorder, not otherwise specified; N83.209 Unspecified ovarian cyst, unspecified side; Z91.14 Patient's other noncompliance with medication regimen; F41.9 Anxiety disorder, unspecified
CPT/HCPCS: 36415; 71045; 80053; 81003; 82550; 82553; 82962; 83880; 84484; 85007; 85025; 93005; 93306; 99285